=== PATIENT | female | born 1975 | race African-American/Black ===

== ENCOUNTER 2016-12-23 09:25 | Emergency (ER) | payer MEDICAID ==
[~2016-12-23] VITALS: Ht 162.6 cm; Wt 85.3 kg
[2016-12-23] MEDS ORDERED: cloNIDine HCL 0.1 MG TAB PO ONE (09:45)
[2016-12-23 09:57] LABS: Urine RBC None Seen /hpf (0 - 4)
[2016-12-23 10:16] LABS: Urine Bilirubin Negative (Negative); Urine Blood Negative /uL (Negative); Urine Color Yellow (Yellow); Urine Glucose Normal (Normal); Urine Ketone Negative (Negative); Urine Mucus FEW (None Seen); Urine Nitrite Negative (Negative); Urine Squamous Epithelial Cell FEW /hpf (<5); Urine pH 6.5 (5.0-8.0)
[2016-12-23 10:26] LABS: Basophils # (auto) 0.1 uL; Eosinophils # (auto) 0 uL; Mean Corpuscular Hemoglobin 17.5 pg (28.0-32.0); Mean Platelet Volume 8.7 fL (6.9-10.8); Monocytes # (auto) 0.5 uL
[2016-12-23 10:28] LABS: Basophils % (auto) 1.5 % (0.0-2.0); Eosinophils % (auto) 0.3 % (0.0-7.0); Hematocrit 28.9 % (36.0-46.0); Hemoglobin 8.6 g/dL (12.2-16.2); Lymphocytes # (auto) 1.4 uL; Lymphocytes % (auto) 20.8 % (10.0-50.0); Mean Corpuscular Hgb Conc. 29.9 g/dL (32.0-36.0); Mean Corpuscular Volume 58.6 fL (80.0-100.0); Monocytes % (auto) 8.2 % (0.0-12.0); Neutrophils # (auto) 4.6 uL; Neutrophils % (auto) 69.2 % (37.0-80.0); Nucleated Red Blood Cells % 0.1 %; Platelet Count (auto) 400 10^3/uL (140-450); White Blood Cell 6.6 10^3/uL (4.4-10.8)
[2016-12-23 10:32] LABS: Red Cell Distribution Width 20.3 % (11.8-14.3)
[2016-12-23 10:45] LABS: Albumin 3.9 g/dL (3.4-5.0); Alkaline Phosphatase 122 U/L (45-117); Anion Gap 7 (5-15); Aspartate Aminotransferase 31 U/L (15-37); BUN/Creatinine Ratio 7.3; Bilirubin, Total 0.5 mg/dL (0.2-1.0); Blood Urea Nitrogen 8 mg/dL (7-18); Calcium 8.5 mg/dL (8.5-10.1); Carbon Dioxide 27 mmol/L (21-32); Chloride 101 mmol/L (98-107); GFR African American 70 mL/min; GFR Non-African American 58 mL/min; Glucose 96 mg/dL (74-106); Potassium 3.8 mmol/L (3.5-5.1); Sodium 135 mmol/L (136-145); Total Protein 8.5 g/dL (6.4-8.2)
[2016-12-23 10:46] LABS: Anisocytosis Slight; Platelet Estimate Adequate
[2016-12-23 10:47] LABS: Hypochromia Moderate; Microcytosis Marked
[2016-12-23 10:57] VITALS: BP 173/91
[2016-12-23] MEDS ORDERED: LISINOPRIL 10 MG TAB PO ONE (11:15)
== END 2016-12-23 12:06 | disposition home or self-care (01) ==
LOC: ER 09:25
DX: I10 Essential (primary) hypertension (principal); R51 Headache; Z87.442 Personal history of urinary calculi
CPT/HCPCS: 36415; 70450; 71010; 80053; 81001; 84484; 85025; 93005